=== PATIENT | male | born 1960 | race Caucasian/White ===

== ENCOUNTER → 2023-12-15 | Outpatient (CLI) | payer OTHER, SELFPAY ==
[2023-12-15 19:16] LABS: AUTO B FLUID DILUENT BKGD CT WBC <0.1 RBC <0.01 (W<.1,R<.01); CRYSTALS, BODY FLUID See PATH REV; Source- Body Fluid SYNOVIAL
[2023-12-15 19:17] LABS: Appearance /Synovial Fluid Sl hazy (CLEAR); Color / Synovial Fluid Yellow (Pale Yellow); RBC /Synovial Fluid 14 /mm3 (0); Source / Synovial Fluid RT KNEE
[2023-12-15 19:18] LABS: Synovial Fld Mononuclear WBC # 0.183 10^3/ul; Synovial Fld Mononuclear WBC % 86.3 %; Synovial Fld Polynuclear WBC # 0.029 10^3/uL; Synovial Fld Polynuclear WBC % 13.7 %
[2023-12-15 20:02] LABS: Lymph 3 %; Monocyte /Synovial Fluid 93 %; Neutrophil 4 % (0-25)
[2023-12-15 20:03] LABS: Body Fluid QC Type(s) BF4Q BF5Q; Pathologist Review Will follow
[2023-12-16 14:00] LABS: Pathologist Comment Reviewed
== END | disposition home or self-care (01) ==
PROVIDERS: Visit Provider Internal Medicine Rheumatology
DX: M06.4 Inflammatory polyarthropathy (principal); I10 Essential (primary) hypertension; E78.5 Hyperlipidemia, unspecified; I25.10 Atherosclerotic heart disease of native coronary artery without angina pectoris; R31.21 Asymptomatic microscopic hematuria
CPT/HCPCS: 87070; 87075; 87205; 89050; 89051; 89060